=== PATIENT | female | born 1940 | race Caucasian/White ===

== ENCOUNTER 2020-12-03 10:38 | Inpatient (IN) | payer MEDICARE ==
[2020-12-03 11:11] LABS: #Eosinphils 0.1 10x3/uL (0.0-0.5); #Monocytes 0.5 10x3/uL (0.0-1.1); #Neutrophils 4.2 10x3/uL (1.5-8.4); %Basophils 0.4 % (0.0-2.0); %Eosinophils 1.9 % (0.0-6.0); %Lymphocytes 10.1 % (18.0-47.0); %Monocytes 8.7 % (0.0-10.0); %Neutrophils 78.7 % (40.0-75.0); Hemoglobin 11.2 g/dL (12.0-15.5); Mean Corpuscular HGB CONC 34.3 g/dL (32.0-36.0); Mean Corpuscular Hemoglobin 32.9 pg (27.0-33.0); Mean Corpuscular Volume 96.2 fl (81.6-98.3); Mean Platelet Volume 9.5 fl (7.4-10.4); Platelet Count 169 10x3/uL (150-450); RBC Distribution Width 12.2 % (11.5-14.5); White Blood Cell (WBC) Count 5.3 10x3/uL (3.5-10.5)
[2020-12-03 11:43] LABS: ALT (SGPT) 7 U/L (8-55); AST (SGOT) 18 U/L (5-34); Alkaline Phosphatase 62 U/L (40-110); Anion Gap 9 mmol/L (10-20); BUN (Urea Nitrogen) 16 mg/dL (9.8-20.1); Calc. Creatinine Clearance 0 mL/min (70-130); Calcium 8.1 mg/dL (7.8-10.44); Carbon Dioxide 25 mmol/L (23-31); Chloride 98 mmol/L (98-107); Glucose 109 mg/dL (83-110); Potassium 3.4 mmol/L (3.5-5.1); Sodium 129 mmol/L (136-145)
[2020-12-03 16:07] VITALS: BMI 17.6
[2020-12-03] MEDS ORDERED: Ondansetron PF 4 MG/2 ML Vial IVP PRN (18:00)
[2020-12-03] MEDS ORDERED: Acetaminophen 325 MG TAB PO PRN (18:00)
[2020-12-03] MEDS: Sodium Chloride 0.9% 1,000 ML IV SCH (18:45)
[2020-12-03] MEDS ORDERED: Famotidine 20 MG TAB PO SCH (21:00)
[2020-12-04 05:12] LABS: #Eosinphils 0.5 10x3/uL (0.0-0.5); #Monocytes 0.6 10x3/uL (0.0-1.1); #Neutrophils 1.9 10x3/uL (1.5-8.4); %Basophils 0.5 % (0.0-2.0); %Lymphocytes 22.4 % (18.0-47.0); %Monocytes 14.8 % (0.0-10.0); Hemoglobin 11.4 g/dL (12.0-15.5); Mean Corpuscular HGB CONC 34.3 g/dL (32.0-36.0); Mean Corpuscular Hemoglobin 33.4 pg (27.0-33.0); Mean Corpuscular Volume 97.4 fl (81.6-98.3); Mean Platelet Volume 9.5 fl (7.4-10.4); Platelet Count 172 10x3/uL (150-450); RBC Distribution Width 12.2 % (11.5-14.5); Red Blood Cell (RBC) Count 3.41 10x6/uL (3.90-5.03); White Blood Cell (WBC) Count 3.8 10x3/uL (3.5-10.5)
[2020-12-04 05:49] LABS: ALT (SGPT) 14 U/L (8-55); AST (SGOT) 17 U/L (5-34); Albumin 3.8 g/dL (3.4-4.8); Alkaline Phosphatase 56 U/L (40-110); Anion Gap 9 mmol/L (10-20); BUN (Urea Nitrogen) 10 mg/dL (9.8-20.1); Bilirubin, Total 0.6 mg/dL (0.2-1.2); Calc. Creatinine Clearance 48 mL/min (70-130); Calcium 8.5 mg/dL (7.8-10.44); Carbon Dioxide 28 mmol/L (23-31); Chloride 101 mmol/L (98-107); Globulin 2.3 g/dL (2.4-3.5); Glucose 92 mg/dL (83-110); Potassium 3.5 mmol/L (3.5-5.1); Protein, Total 6.1 g/dL (5.8-8.1); Sodium 134 mmol/L (136-145)
[2020-12-04 07:39] LABS: Bilirubin Neg (Negative); Blood, Urine Negative (Negative); Clarity Clear (Clear); Glucose, Urine (Dipstick) Normal (Negative); Ketone, Urine Negative (Negative); Leukocyte 25 (Negative); Nitrite Negative (Negative); Protein, Urine (Dipstick) Negative (Neg-Trace); Specific Gravity, Urine 1.015 (1.002-1.036); Urobilinogen Normal mg/dL (Less than 2)
[2020-12-04] MEDS ORDERED: Potassium Chloride 20 MEQ TAB PO SCH (08:00)
[2020-12-04 08:10] LABS: Bacteria/HPF None Seen HPF (None Seen); RBC/HPF 0-3 HPF (0-3); Squamous Epithelial 0-3 HPF (0-3); WBC/HPF 0-3 HPF (0-3)
[2020-12-04] MEDS: Potassium Chloride 20 MEQ TAB PO SCH (09:09)
[2020-12-04] MEDS: Sodium Chloride 0.9% 1,000 ML IV SCH (12:15)
[2020-12-04] MEDS: Famotidine 20 MG TAB PO SCH (22:01)
[2020-12-05] MEDS: Potassium Chloride 20 MEQ TAB PO SCH (10:19)
[2020-12-05] MEDS: Sodium Chloride 0.9% 1,000 ML IV SCH (10:19)
[2020-12-05] MEDS: Carbidopa/Levodopa 25-100 mg Tablet PO SCH ×2 (16:48→23:48)
[2020-12-05] MEDS ORDERED: ESTAZOLAM 1 MG PO SCH (21:00)
[2020-12-05 21:52] LABS: SARS-CoV-2 PCR by NAA Not Detected (NotDetected)
[2020-12-05] MEDS: Lorazepam 0.5 MG TAB PO PRN (22:49)
[2020-12-05] MEDS: Famotidine 20 MG TAB PO SCH (23:48)
[2020-12-06] MEDS: Sodium Chloride 0.9% 1,000 ML IV SCH ×2 (06:42→09:14)
[2020-12-06] MEDS: Levothyroxine Sodium 50 MCG TAB PO SCH ×2 (09:13→09:30)
[2020-12-06] MEDS: Bupropion 150 MG XL TAB PO SCH (09:14)
[2020-12-06] MEDS: Potassium Chloride 20 MEQ TAB PO SCH (09:14)
[2020-12-06] MEDS: Carbidopa/Levodopa 25-100 mg Tablet PO SCH ×3 (09:15→22:00)
[2020-12-06] MEDS: Venlafaxine HCl XR 75 MG CAP PO SCH (09:15)
[2020-12-06] MEDS: Famotidine 20 MG TAB PO SCH (22:00)
[2020-12-06] MEDS: Lorazepam 0.5 MG TAB PO PRN (22:00)
[2020-12-07 05:58] LABS: ALT (SGPT) 6 U/L (8-55); AST (SGOT) 18 U/L (5-34); Albumin 3.7 g/dL (3.4-4.8); Alkaline Phosphatase 62 U/L (40-110); Anion Gap 13 mmol/L (10-20); BUN (Urea Nitrogen) 10 mg/dL (9.8-20.1); Bilirubin, Total 0.3 mg/dL (0.2-1.2); Calc. Creatinine Clearance 48 mL/min (70-130); Calcium 8.8 mg/dL (7.8-10.44); Carbon Dioxide 27 mmol/L (23-31); Chloride 100 mmol/L (98-107); Globulin 2.3 g/dL (2.4-3.5); Glucose 82 mg/dL (83-110); Potassium 4.3 mmol/L (3.5-5.1); Sodium 136 mmol/L (136-145)
[2020-12-07] MEDS: Carbidopa/Levodopa 25-100 mg Tablet PO SCH ×3 (07:59→22:53)
[2020-12-07] MEDS: Bupropion 150 MG XL TAB PO SCH (07:59)
[2020-12-07] MEDS: Levothyroxine Sodium 50 MCG TAB PO SCH (07:59)
[2020-12-07] MEDS: Venlafaxine HCl XR 75 MG CAP PO SCH (08:00)
[2020-12-07] MEDS: Potassium Chloride 20 MEQ TAB PO SCH (08:00)
[2020-12-07] MEDS: Famotidine 20 MG TAB PO SCH (22:53)
[2020-12-08] MEDS: Levothyroxine Sodium 50 MCG TAB PO SCH (09:15)
[2020-12-08] MEDS: Carbidopa/Levodopa 25-100 mg Tablet PO SCH ×2 (09:15→14:00)
[2020-12-08] MEDS: Potassium Chloride 20 MEQ TAB PO SCH (09:15)
[2020-12-08] MEDS: Bupropion 150 MG XL TAB PO SCH (09:15)
[2020-12-08] MEDS: Venlafaxine HCl XR 75 MG CAP PO SCH (09:16)
[2020-12-08 11:52] VITALS: BP 114/66; TEMP 97.7
== END 2020-12-08 14:26 | DRG 641 ==
LOC: CSHERS 10:38 → CSHTELE 14:39
PROVIDERS: ADMIT Family Medicine; ATTEND Family Medicine
DX: E87.1 Hypo-osmolality and hyponatremia (principal); F31.2 Bipolar disorder, current episode manic severe with psychotic features; G20 Parkinson's disease; F02.80 Dementia in other diseases classified elsewhere, unspecified severity, without behavioral disturbance, psychotic disturbance, mood disturbance, and anxiety; Z20.822 Contact with and (suspected) exposure to COVID-19; Z88.2 Allergy status to sulfonamides; E87.6 Hypokalemia; R00.1 Bradycardia, unspecified; F41.9 Anxiety disorder, unspecified
CPT/HCPCS: 36415; 70450; 71045; 80053; 81001; 84484; 85025; 87635; 93005; U0003; U0005

== ENCOUNTER 2025-04-02 20:03 | Emergency (ER) | payer MEDICARE, MEDICAID ==
[~2025-04-02 20:03] MED LIST: Iopamidol 300 61% 100 ML VIAL FS ONE
[2025-04-02 20:41] LABS: Glucose, Urine (Dipstick) Normal (Negative); Leukocyte Negative (Negative); Protein, Urine (Dipstick) 15 mg/dl (Neg-Trace); Specific Gravity, Urine 1.010 (1.005-1.030)
[2025-04-02 21:25] LABS: CAUTI Indications for Culture Pelvic or flank pain; RBC/HPF 0-3 HPF (0-3); WBC/HPF 0-3 HPF (0-3)
[2025-04-02 21:25] LABS: #Basophils 0.04 10x3/uL (0.0-0.2); #Eosinophils 0.20 10x3/uL (0.0-0.5); #Monocytes 0.56 10x3/uL (0.0-1.1); #Neutrophils 2.12 10x3/uL (1.5-8.4); %Basophils 0.8 % (0.0-2.0); %Eosinophils 3.9 % (0.0-6.0); %Lymphocytes 42.1 % (18.0-47.0); %Monocytes 11.0 % (0.0-10.0); %Neutrophils 41.8 % (40.0-75.0); Hematocrit 27.2 % (34.9-44.5); Hemoglobin 9.1 g/dL (12.0-15.5); Mean Corpuscular Hemoglobin 31.3 pg (27.0-33.0); Mean Corpuscular Volume 93.5 fL (81.6-98.3); Platelet Count 171 10x3/uL (150-450); Red Blood Cell (RBC) Count 2.91 10x6/uL (3.90-5.03); White Blood Cell (WBC) Count 5.08 10x3/uL (3.5-10.5)
[2025-04-02 21:26] LABS: Mucous/LPF 1+ LPF (<2+)
[2025-04-02 21:27] LABS: Bacteria/HPF 2+ HPF (None Seen)
[2025-04-02 21:28] LABS: Urine Culture Reflex No No
[2025-04-02 21:38] LABS: ALT (SGPT) Less than 4 U/L (Less than 34); AST (SGOT) 16 U/L (11-34); Albumin 2.5 g/dL (3.1-4.5); Alkaline Phosphatase 65 U/L (40-110); Anion Gap 9 mmol/L (10-20); BUN (Urea Nitrogen) 11 mg/dL (9.8-20.1); Bilirubin, Total 0.2 mg/dL (0.3-1.2); CK (CPK) 48 U/L (29-168); Calc. Creatinine Clearance 0 mL/min (70-130); Calcium 7.9 mg/dL (7.8-10.44); Carbon Dioxide 28 mmol/L (23-31); Chloride 103 mmol/L (98-107); Globulin 3.4 g/dL (2.4-3.5); Glucose 88 mg/dL (83-110); Lipase 17 U/L (8-78); Potassium 3.2 mmol/L (3.5-5.1); Sodium 137 mmol/L (136-145)
[2025-04-02] MEDS ORDERED: Potassium Bicarbonate/Cit Ac 20 MEQ TAB ONE (22:21)
== END 2025-04-02 23:11 | disposition home or self-care (01) ==
LOC: CSHERS 20:03
DX: E87.6 Hypokalemia (principal); Z55.6 Problems related to health literacy
CPT/HCPCS: 74177; 80053; 81001; 82550; 83605; 83690; 84443; 85025; Q9967